=== PATIENT | male | born 1955 | race Caucasian/White ===

== ENCOUNTER 2024-01-10 10:09 | Day surgery (SDC) | payer OTHER, SELFPAY ==
[2024-01-10 11:01] VITALS: BP 183/97
[2024-01-10 11:15] VITALS: BP 183/97
[2024-01-10] MEDS: VANCOCIN 530 MG IV (16:25)
--- NOTE | 2024-01-10 18:08 | ITS.CL.PACE ---
Equipment Monitor Phototypesetting - Pacemaker Implant
Pacemaker Implant
Procedure Report:
Primary High Lift Driver: Damaso Rod MD
Procedure Date: 01/10/2024
Name of procedure:
1. Device Revision: Dual Chamber Pacemaker
2. Pulse Generator Change
History:
See H&P for full details.
Patient is a pleasant 68-year-old male with a history of tobacco use disorder, paroxysmal atrial fibrillation on anticoagulation, sick sinus syndrome status post dual-chamber [employer] pacemaker implanted 2013, prior CVA roughly 8 to 9 years
ago without significant residual deficit, hypertension, dyslipidemia. 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 Patient undergoing elective dual-chamber pacemaker generator change due to device MISTY/[employer]IMAL HUSBANDRY PROFESSOR.
Methods:
After informed consent was obtained, the patient was brought to the EP laboratory in a postabsorptive, nonsedated state. Peripheral IV access was established. Prophylactic antibiotics were administered prior to incision. Continues ECG, blood
pressure, and pulse oximetry were initiated. Cardioversion patch electrodes were placed on the patient's chest and back. A grounding patch was applied to the skin. Sedation was administered by anesthesia services.
The left chest was prepared and draped in a sterile fashion. A 'time out' was called. Local anesthesia was injected in the subcutaneous tissue in the infraclavicular area. An incision was made into the chronic scar. With cautious attention to the
leads, the subcutaneous tissue was dissected the level of the device capsule. The capsule was opened, the device was explanted and disconnected from the leads. The leads were inspected and found to be free of visible defect. The leads were tested
and found to have adequate pacing and sensing parameters, consistent with pre-procedure measurements.
The pocket was revised to accommodate the new device. The pocket was flushed with antibiotic solution and hemostasis was assured. Antibiotic envelope was used. The generator was connected to the leads and placed inside the pocket. The wound was
closed with 3 running layers of absorbable suture and steri-strips were applied to the skin.
Following the procedure, the patient was taken to the recovery area in stable condition. No complications were noted.
Lead parameters and device programming:
- RA Lead ([employer], model: Fine-line 4469, SN# [id number]): Sensing 6.8 mV, Pacing threshold 0.6 V at 0.5 ms, Imp 464 ohm
- RV Lead ([employer], model: Dextrus 4136, SN# [id number]): Sensing 7.7 mV, Pacing threshold 1.5 V at 0.5 ms, Imp 544 ohm
- Device: [employer] pacemaker model: L311 Accolade, SN# [id number], programmed DDDR (rhythm IQ, AAIR with VVI backup), lower rate 60, upper tracking rate 140 ppm
- Explanted device: [employer] model K173, serial #[id number]
Recommendations:
1. Discharge home when stable with instructions for site care
2. Follow-up will be arranged in our office 7-10 days post-discharge for incision check
Cali Conte DO
Clinical Cardiac Electrophysiology
Copy to: Damaso Rod MD
[2024-01-10 18:10] VITALS: BP 113/76
[2024-01-10 18:18] VITALS: BP 113/76
[2024-01-10 18:32] VITALS: BP 123/89
[2024-01-10 18:47] VITALS: BP 118/81
== END 2024-01-10 19:50 | disposition home or self-care (01) ==
LOC: CATH 10:09
PROVIDERS: ATTENDING PHYSICIAN Internal Medicine Cardiovascular Disease; FAMILY PHYSICIAN Family Medicine; OTHER PHYSICIAN Internal Medicine Interventional Cardiology
DX: Z45.010 Encounter for checking and testing of cardiac pacemaker pulse generator [battery] (principal); I49.5 Sick sinus syndrome; Z79.01 Long term (current) use of anticoagulants; I48.0 Paroxysmal atrial fibrillation; Z87.891 Personal history of nicotine dependence
CPT/HCPCS: 33228; C1785

== ENCOUNTER 2024-09-14 15:46 | Emergency (ER) | payer OTHER, SELFPAY ==
[2024-09-14 15:50] VITALS: BP 157/99
--- NOTE | 2024-09-14 18:21 | ED.GENMED ---
History of Present Illness
General
Chief Complaint: Blood Pressure Problem
Source: patient
Exam Limitations: none
Time Seen by Provider: 09/14/24 18:07
History of Present Illness
History of Present Illness:
Patient checks his blood pressure on a daily basis. Normally runs about 120 over 70s. He is on 10 mg of Benicar daily. The last 3 to 4 days blood pressure has been higher in the 130s to 140s over 90 range. This morning he woke up took his 10
milligram dose. Blood pressure remained in the 140/90 range he took it again. Patient's blood pressure remained in this range and he took a third dose of 10 mg. He has remained totally asymptomatic denying chest pain shortness of breath headache
visual issues speech issues. Very worried about his blood pressure however. He feels fine at this time and has had no symptoms
Past History
Past History
ED Past Medical History: Arrthythmia, HTN and Hypercholesterolemia
ED Past Surgical History: Cardiac (Pacemaker), Orthopedic and Other (Angioplasty)
Review of Systems
Review of Systems
All Other Systems: Not applicable
Constitutional: Denies fever
Respiratory: Reports no symptoms
Cardiac: Reports no symptoms
Neurological: Reports no symptoms
Phy Exam
Physical Exam
Physical Exam:
GENERAL: Alert and oriented in no apparent distress
EYE: Orbits normal.
NECK: Supple, no significant adenopathy.
ENT: Pharynx without erythema
CARDIAC: Regular rate and rhythm without any obvious murmurs.
LUNGS: Clear breath sounds,normal
ABDOMEN: Soft, without focal tenderness or distention
NEUROLOGICAL: Alert and oriented , grossly non-focal
SKIN: Warm and dry, no rash or lesion, no discoloration, skin intact.
MUSCULOSKELETAL: No edema,no deformity.Good color
PSYCH: Normal and appropriate interaction.. Ambulating fine. No distress
Course
Orders/Labs/Results
Orders:
Orders
09/14/24 18:16
Electrocardiogram (*1) Stat
Reason for Study: Other
Other Reason for Exam: chest pain
Cardiac Monitoring- Treatment ONCE
EKG- Treatment ONCE
09/14/24 18:33
Basic Metabolic Panel Urgent
Complete Blood Count/With Diff Urgent
Abnormal Lab Results
09/14/24
18:33
Absolute Monos (auto) 0.7 H 10^3/uL
(0.1-0.6)
Lymphocytes % 18.9 L %
(20.5-51.1)
Chloride 110 H mmol/L
(98-107)
09/14/24 18:33
09/14/24 18:33
Vital Signs
Initial and Last Documented VS:
Initial Vital Signs
Temp Pulse Resp BP Pulse Ox
97.8 F 70 16 157/99 99
09/14/24 15:50 09/14/24 15:50 09/14/24 15:50 09/14/24 15:50 09/14/24 15:50
Last Documented Vital Signs
Temp Pulse Resp BP Pulse Ox
97.8 F 65 15 143/83 93
09/14/24 15:50 09/14/24 20:45 09/14/24 20:45 09/14/24 20:00 09/14/24 20:45
MDM/Problems Addressed
Differential Diagnosis Includes:
Patient is totally asymptomatic. Minimally elevated blood pressure. Will check routine kidney function EKG monitoring. No indication for radiologic testing. Nothing that be suspicious of a bleed. Absolutely totally asymptomatic neurologically
*Pulse Oximetry
SaO2: 99
Oxygen Mode of Delivery: Room air
Patient hypoxic: no
*EKG
Interpreted by ED Provider?: Yes
Interpretation: abnormal
Comparison EKG: changes noted
Heart Rate: 60
Rate: normal
Rhythm: other (Atrial paced)
Hubbell: normal axis
Interval: normal interval
QRS Pattern: normal QRS
Ischemia: no ischemia
*Critical Care Note
Total Time (30-74mins, 75-104mins- exclusive of procedures): Not Applicable
Update Note
Update Note:
Patient has remained stable and nontoxic. Blood pressure 147/94 patient is on Benicar. Will increase his dose of Benicar and follow-up. Totally asymptomatic
ED Attending Note
-
Portions of this chart may have been created with voice recognition software.� Occasional wrong word or��sound alike� substitutions may have occurred due to the inherent limitations of voice recognition software.
Discharge Plan
Departure
Patient Disposition: Home (Routine Discharge)
Date of Disposition: 09/14/24
Time of Disposition: 21:00
Patient with high blood pressure during this ER visit?: Yes
Discharge Problem:
Elevated blood pressure
Instructions: BLOOD PRESSURE
Prescriptions:
No Action
atorvastatin 80 mg Tablet
80 mg PO DAILY
olmesartan 5 mg Tablet
5 mg PO DAILY
ezetimibe 10 mg Tablet
10 mg PO DAILY
Eliquis 5 mg Tablet
5 mg PO BID
acetaminophen [Tylenol Extra Strength] 500 mg tablet
1,000 mg PO Q6HPRN PRN (Reason: mild pain) Qty: 1 0RF
oxycodone 5 mg tablet
5 mg PO Q4HPRN PRN (Reason: breakthrough/severe pain) Qty: 10 0RF
Referrals:
UNKNOWN - PT DOES,NOT KNOW [Family Provider]
Activity Restrictions/Additional Instructions:
Call your physician Monday morning for close follow-up
Increase your daily olmesartan to 20 mg per day.
Return immediately with any symptoms including chest pain shortness of breath headache visual issues or any other concerning symptoms
Interventions
Interventions:
*Risk Screen - Suicide Last Done: 09/14/24 15:50
*General Assessment Last Done: 09/14/24 15:50
*Neglect/Abuse Screening Last Done: 09/14/24 15:50
*ED- Fall Risk Assessment Last Done: 09/14/24 18:50
*ED COVID-19 Vaccine History Last Done: 09/14/24 18:50
*Nursing Disposition Last Done: 09/14/24 21:10
ED- Cardiac Assessment Last Done: 09/14/24 18:50
ED- Neurological Assessment Last Done: 09/14/24 18:50
ED- Pulmonary Assessment Last Done: 09/14/24 18:50
Discharge Date and Time
Discharge Date/Time: 09/14/24 21:12
Print Language: MALTESE
[2024-09-14 18:32] VITALS: BP 150/97
[2024-09-14 18:45] LABS: Hematocrit 43.5 % (39.0-52.0); Hemoglobin 14.9 g/dL (13.0-18.0); Mean Corp Hgb Conc. 34.3 g/dL (33.0-37.0); Mean Corpuscular Volume 90.1 fL (80.0-94.0); Nucleated Red Blood Cells % 0 % (-); Platelet Count 224 10^3/uL (130-400); Red Cell Dist. Width 12.9 % (11.5-14.5)
[2024-09-14 19:00] VITALS: BP 147/94
[2024-09-14 19:01] LABS: Blood Urea Nitrogen 19 mg/dl (9-20); Calcium 9.6 mg/dl (8.4-10.2); Carbon Dioxide 25 mmol/L (22-30); Chloride 110 mmol/L (98-107); Glucose 93 mg/dl (70-99); Potassium 4.4 mmol/L (3.5-5.1); Sodium 142 mmol/L (135-145); eGFR > 60.00
[2024-09-14 20:00] VITALS: BP 143/83
== END 2024-09-14 21:12 | disposition home or self-care (01) ==
LOC: EMR 15:46
PROVIDERS: EMERGENCY PHYSICIAN Emergency Medicine
DX: I10 Essential (primary) hypertension (principal); E78.00 Pure hypercholesterolemia, unspecified; Z95.0 Presence of cardiac pacemaker; Z79.899 Other long term (current) drug therapy
CPT/HCPCS: 99284; 80048; 85025; 93005